=== PATIENT | male | born 1985 | race Caucasian/White ===

== ENCOUNTER 2017-09-06 08:22 | Day surgery (SDC) | END 2017-09-06 13:45 | disposition home or self-care (01) ==

== ENCOUNTER 2017-09-14 07:16 | Day surgery (SDC) | END 2017-09-14 11:26 | disposition home or self-care (01) ==

== ENCOUNTER 2017-10-19 13:54 | Inpatient (IN) | END 2017-10-20 16:52 | disposition home or self-care (01) | DRG 308 ==